=== PATIENT | female | born 1970 | race Caucasian/White ===

== ENCOUNTER 2021-10-11 11:29 | Day surgery (SDC) | payer BC ==
--- NOTE | 2021-10-11 10:12 | HP ---
HISTORY OF PRESENT ILLNESS: This is a patient who presents for screening colonoscopy. No nausea, vomiting, diarrhea, constipation, reflux, shortness of breath, chest pain, dysuria, hematuria, cough, fever or other symptoms. The patient has occasional pain in her lower rectal area which is minimal and intermittent. She is not having this now. The patient also does still have a period. The patient did have a colonoscopy about six years ago and she was unable to do the prep. She was off work for three days secondary to getting sick after the prep but she did not have any hives. She did have vomiting at that time. This was with the MiraLAX prep and so we are going to try the SuPrep. PAST MEDICAL HISTORY: None. PAST SURGICAL HISTORY: section. MEDICATIONS: None. ALLERGIES: SULFA. FAMILY HISTORY: Heart disease, hypertension, atrial fibrillation and colon cancer. PHYSICAL EXAMINATION: GENERAL: No acute distress. CVS: Regular rate and rhythm. PULMONARY: Nonlabored. ABDOMEN: Soft, nontender, nondistended. EXTREMITIES: Normal. DIAGNOSIS: Screening. PLAN: Colonoscopy.
[~2021-10-11 11:29] MED LIST: Lactated Ringers 1,000 ML IV SCH
[2021-10-11] MEDS ORDERED: Lactated Ringers 1,000 ML IV ONE ×3 (11:49→14:03)
[2021-10-11 12:52] VITALS: O2SAT 100
[2021-10-11] MEDS ORDERED: Versed 2 MG/2 ML Injection ONE (13:36)
[2021-10-11] MEDS ORDERED: DIPRIVAN 200 MG/20 ML IV ONE ×2 (13:36→14:00)
[2021-10-11] MEDS ORDERED: Xylocaine-Mpf 2% 5 Ml Vial ONE (13:37)
[2021-10-11 14:58] VITALS: BP 114/74; PULSE 69
--- NOTE | 2021-10-12 07:51 | OP ---
PROCEDURE DATE/TIME: 10/11/2021 133 PREOPERATIVE DIAGNOSIS: Screening. POSTOPERATIVE DIAGNOSIS: Colon polyp (cecal). PROCEDURE: Colonoscopy to cecum with cold forceps cecal polypectomy. PROCEDURE PERFORMED BY: Geno Walters M.D. COMPLICATIONS: None. ESTIMATED BLOOD LOSS: Minimal. ANESTHESIA: MAC. SPECIMEN: Cecal polyp. PLAN: Tentative colonoscopy for surveillance in five years. Final determination will be made after final pathology report. HISTORY: This is 51-year-old female who presents for screening colonoscopy. She was seen in the preoperative area. H&P and consent reviewed and confirmed. DESCRIPTION OF PROCEDURE: The patient was laid in the left lateral decubitus position. A complete time out was performed. First a rectal exam was done which was normal. The scope was then inserted and gently advanced to the level of the cecum this was done with ease. The cecum was evaluated. The ileocecal valve appeared normal. The appendiceal orifice was visualized and was normal. Immediately lateral to the appendiceal orifice in the cecum was a small 2 to 3 mm sessile polyp that appeared to be benign this was taken in entirety with two bites of cold forceps. Insured to be removed in entirety and then the specimen was retrieved. The site was hemostatic. We then carefully withdrew the scope taking a good circumferential view. The prep was good. There were no other polyps or lesions identified. The remainder of the colon and rectum appeared to be very healthy. The scope was then fully withdrawn. Again, no other findings in the colon and rectum. The hemorrhoid tissue looked normal. She had one cecal polyp. Plan will be for another colonoscopy in approximately five years pending the pathology results.
== END 2021-10-11 15:05 | disposition home or self-care (01) ==
LOC: SDC 11:29
PROVIDERS: ATTEND Surgery
DX: Z12.11 Encounter for screening for malignant neoplasm of colon (principal); Z80.0 Family history of malignant neoplasm of digestive organs; K63.5 Polyp of colon
CPT/HCPCS: 84703; J2250; J2704